=== PATIENT | female | born 1980 | race Caucasian/White ===

== ENCOUNTER 2016-10-06 18:32 | Emergency (ER) | payer MEDICAID, OTHER ==
--- OUTSIDE RECORDS SUMMARY | 2016-10-06 20:08 | XMS REPORT | Encounter Summary ---
:1980 Author Organization [employer] [place] [address] Care Team Providers Name Role Phone Unavailable Primary Care Provider Unavailable Encounter Details Date Type Department Care Team Description 09/19/2016 Abstract [facility] Rosanne Paniagua, RN Orthopedics [address] [place] [address], [address] [address] [place] [address] [phone] Social History Tobacco Use Types Packs/Day Years Used Date Current Every Day Smoker 0.5 Alcohol Use Drinks/Week oz/Week Comments No Sex Assigned at Date Recorded Not on file as of this encounter Plan of Treatment Not on fileas of this encounter Visit Diagnoses Not on filein this encounter
--- OUTSIDE RECORDS SUMMARY | 2016-10-06 20:08 | XMS REPORT | Clinical Summary ---
:1980 Author Organization [facility] [place] [address] Care Team Providers Name Role Phone Unavailable Primary Care Provider Unavailable Source Comments This disclosure is being made pursuant to the [employer] program and maynot contain all information available regarding this patient.[facility] Allergies No Known Allergies Current Medications Be aware that medications may not be up to date as of this document. Alwaysverify current medications with the patient. Prescription Sig. Disp. Refills Start Date End Date Status albuterol (PROAIR Inhale 2 puffs Active HFA;PROVENTIL into the lungs HFA;VENTOLIN HFA) every 4 (four) 108 (90 Base) to 6 (six) hours MCG/ACT inhaler as needed. budesonide-formotero Inhale 2 puffs Active l (SYMBICORT) into the lungs 2 160-4.5 MCG/ACT (two) times inhaler daily. Use in the morning and in the evening. ibuprofen Take 800 mg by Active (ADVIL,MOTRIN) 800 mouth every 6 MG tablet (six) to 8 (eight) hours as needed for Pain (Take with food or milk.). traMADol (ULTRAM) 50 Take 50 mg by Active MG tablet mouth every 8 (eight) hours as needed for Pain. fluticasone 2 sprays by 09/19/2016 Discontinued (FLONASE) 50 MCG/ACT Nasal route nasal spray daily. to each nostril prazosin (MINIPRESS) Take 1 mg by 09/19/2016 Discontinued 1 MG capsule mouth nightly. gabapentin Take 100 mg by 09/19/2016 Discontinued (NEURONTIN) 100 MG mouth 3 (three) capsule times daily. May increase to 2 capsules three times daily, then may increase to 3 capsules three times daily if needed. DULoxetine Take 30 mg by 09/19/2016 Discontinued (CYMBALTA) 30 MG mouth daily. capsule hydrOXYzine pamoate Take 25 mg by 09/19/2016 Discontinued (VISTARIL) 25 MG mouth 3 (three) capsule times daily as needed for Itching. Active Problems Problem Noted Date Digital nerve laceration, finger 09/19/2016 Bilateral carpal tunnel syndrome 09/19/2016 Encounters Date Type Specialty Care Team Description 09/20/2016 Orders Only Orthopedic Surgery Rosanne Yeh Bilateral carpal tunnel syndrome (Primary Dx); KARIME Chavira Digital nerve laceration, finger, initial encounter 09/19/2016 Office Visit Orthopedic Surgery Pravin, Digital nerve laceration , finger, initial encounter (Primary Dx); MD Dariel Bilateral carpal tunnel syndrome 09/19/2016 Abstract Orthopedic Surgery Rosanne Yeh RN from Last 3 Months Family History Medical History Relation Name Comments Cancer Other Diabetes Other Heart attack Other Migraines Other Stroke Other Relation Name Status Comments Other Social History Tobacco Use Types Packs/Day Years Used Date Current Every Day Smoker 0.5 Alcohol Use Drinks/Week oz/Week Comments No Sex Assigned at Date Recorded Not on file Last Filed Vital Signs Vital Sign Reading Time Taken Blood Pressure 113/70 09/19/2016 10:50 AM CDT Pulse 89 09/19/2016 10:50 AM CDT Temperature 36.2 C (97.1 F) 09/19/2016 10:50 AM CDT Respiratory Rate - - Oxygen Saturation 97% 09/19/2016 10:50 AM CDT Inhaled Oxygen Concentration - - Weight 55.8 kg (123 lb) 09/19/2016 10:50 AM CDT Height 142.2 cm (4' 8") 09/19/2016 10:50 AM CDT Body Mass Index 27.58 09/19/2016 10:50 AM CDT Plan of Treatment Health Maintenance Due Date Last Done Comments Pneumococcal Medium Risk 19-64 yo (1 of 1 - PPSV23) 1998 Tetanus/Pertussis (1 - Tdap) 1998 Pap Smear 2000 INFLUENZA IMMUNIZATION (#1) 2016 Results Not on filefrom Last 3 Months Insurance Payer Benefit Plan / Subscriber ID Type Phone Address Group [place] [id number] Managed [phone] [address] [address] MEDICAID MEDICAID [address] [place] [address]
--- OUTSIDE RECORDS SUMMARY | 2016-10-06 20:08 | XMS REPORT | Encounter Summary ---
:1980 Author Organization [employer] [place] [address] Care Team Providers Name Role Phone Unavailable Primary Care Provider Unavailable Reason for Referral Referral (Routine) Status Reason Specialty Diagnoses / Referred By Referred To Procedures Contact Contact Authorized Specialty Hand Surgery Diagnoses Bilateral carpal tunnel syndrome Digital nerve laceration, finger, initial encounter JESÚS Costello [facility] Dariel ORTHOPAEDIC Required MD [facility]-[address] [place] [phone] [place], Phone: [place] [phone] Phone: Encounter Details Date Type Department Care Team Description 09/20/2016 Orders Only [facility] Rosanne Yeh Bilateral carpal tunnel syndrome (Primary Dx); Krista [facility] Fan, RN Digital nerve laceration, finger, initial encounter [address] [place] [address] [place] [address] Social History Tobacco Use Types Packs/Day Years Used Date Current Every Day Smoker 0.5 Alcohol Use Drinks/Week oz/Week Comments No Sex Assigned at Date Recorded Not on file as of this encounter Plan of Treatment Name Priority Associated Diagnoses Order Schedule Amb Ref to Hand Surgery Routine Bilateral carpal tunnel syndrome Ordered: 09/20/2016 Digital nerve laceration, finger, initial encounter as of this encounter Visit Diagnoses Diagnosis Bilateral carpal tunnel syndrome - Primary Carpal tunnel syndrome Digital nerve laceration, finger, initial encounter in this encounter
--- OUTSIDE RECORDS SUMMARY | 2016-10-06 20:09 | XMS REPORT | Encounter Summary ---
:1980 Author Organization [employer] [place] [address] Care Team Providers Name Role Phone Unavailable Primary Care Provider Unavailable Reason for Visit Reason Comments Finger Pain Encounter Details Date Type Department Care Team Description 09/19/2016 Office Visit [facility] Pravin Digital nerve laceration, finger, initial encounter (Primary Dx); Krista Orthopedics MD Dariel Bilateral carpal tunnel syndrome 1603 [facility], [address] [place] [address] [address] [place] [address] [place], [place] [phone] Social History Tobacco Use Types Packs/Day Years Used Date Current Every Day Smoker 0.5 Alcohol Use Drinks/Week oz/Week Comments No Sex Assigned at Date Recorded Not on file as of this encounter Last Filed Vital Signs Vital Sign Reading [...] Mass Index 27.58 09/19/2016 10:50 AM CDT in this encounter Progress Notes Dariel Costello MD - 09/19/2016 10:42 AM CDTFormatting of this note may be different from the original. Subjective: Patient ID: Fredy Goody is a 36 y.o. female. Chief Complaint: HPI Comments: Ms. Godoy presents to the clinic today due to RIGHT ring and long finger numbness. The pain is due to a laceration that occurred on 08/29/16. She reports that she cut her fingers on tree clippers and immediately went to the ER. She reports that she had 5 sutures placed, and that they only removed 3 yesterday, so she believes she may still have 1-2 sutures intact. She reports that her ring finger feels "asleep" and that the numbness goes throughout the ring finger and fci up the long finger. Her laceration does not appear infected and is located to her RIGHT ring finger and goesinto the palm. She reports that she is unable to fully straighten her ring and long fingers. She denies having any pain in the finger unless you touch it. HAS RECENT H/O CARPAL TUNNEL AND IS SCHEDULED FOR NCS IN OCTOBER IN [place]. Social History Occupational History Not on file. Social History Main Topics Smoking status: Current Every Day Smoker -- 0.50 packs/day Smokeless tobacco: Not on file Alcohol Use: No Drug Use: No Sexual Activity: Not on file Review of Systems Constitutional: Negative. HENT: Negative. Eyes: Negative. Respiratory: Negative. Cardiovascular: Negative. Gastrointestinal: Negative. Endocrine: Negative. Genitourinary: Negative. Musculoskeletal: Numbness in RIGHT ring and long finger Skin: Negative. Allergic/Immunologic: Negative. Neurological: Negative. Hematological: Negative. Psychiatric/Behavioral: Negative. Objective: Right Hand/Wrist Exam Sensation: Abnormal Tenderness The patient is experiencing tenderness in the RING MP CREASE. Muscle Strength Wrist Extension: 5/5 Wrist Flexion: 5/5 Foot Miter Operator: Tests Phalens Sign: Positive Tinels Sign (Medial Nerve): Negative Pallavi: Negative Comments: LACERATION AT MP FLEXION CREASE RING FINGER SENSORY LOSS RING FINGER AND LONG FINGER APB WEAKNESS Assessment: 1. Digital nerve laceration, finger, initial encounter 2. Bilateral carpal tunnel syndrome DELAYED PRESENTATION; INJURY AUG 29, 2016 Plan: HAND SX REFERRAL in this encounter Plan of Treatment Not on fileas of this encounter Visit Diagnoses Diagnosis Digital nerve laceration, finger, initial encounter - Primary Bilateral carpal tunnel syndrome Carpal tunnel syndrome in this encounter
--- NOTE | 2016-10-06 20:25 | ERNOTE ---
Upper Extremity HPI - Narrative Date of Service: 10/06/16 - General Extremities Pain Location: wrist: right - moderate pain with movemen Time Seen by Provider: 10/06/16 19:57 Source: patient - Immun/Allergies/Home Medications Immunizations: IMMUNIZATION HX Immunizations Up to Date Yes History of Influenza Vaccine No Hx Pneumococcal Vaccination No Allergies/Adverse Reactions: Allergies Allergy/AdvReac Type Severity Reaction Status Date / Time No Known Allergies Allergy Unverified 10/06/16 19:09 Home Medications: HOME MEDICATIONS Budesonide/Formoterol Fumarate [Symbicort 80-4.5 Mcg Inhaler] 1 puff PO DAILY [Last Taken Unknown] Ibuprofen [Motrin] 800 mg PO QID PRN 10/06/16 [Last Taken Unknown] oxyCODONE HCL/ACETAMINOPHEN [Percocet 5-325 mg Tablet] 1 mg PO PRN PRN 10/06/16 [Last Taken Unknown] - History of Present Illness Narrative: Records from [facility] were reviewed primarily the operative report from Dr. Carrasquillo. Essentially patient had a carpal tunnel release surgery , and a repair of nerve injury from deep laceration. No surgical complications were noted. This was relayed to the patient due to the soft tissue swelling now resolved the cast was rubbing up against her incision around the area of the carpal tunnel surgery and she was not tolerating the pain and is here for evaluation. Occurred: other - just today the patient was unable to tolerate the pain and is here for evaluation. Modifying Factors - (Improves): Reports: immobilization - mobilization helps with some. Denies: pain medication - pain medications are no longer alleviating the pain Modifying Factors - (Worsens): Reports: other - looseness of the cast seems to be exacerbating the pain Associated Symptoms: Reports: tingling - mild. Denies: weakness Prior Treament: Reports: treated by physician, other - recent surgery for carpal tunnel release and nerve injury to index finger. Review of Systems - Review of Systems Constitutional: Present: no symptoms reported EYE: Present: no symptoms reported ENT: Present: no symptoms reported Respiratory: Present: no symptoms reported Cardiology: Present: no symptoms reported Gastrointestinal/Abdominal: Present: no symptoms reported Genitourinary: Present: no symptoms reported Musculoskeletal: Present: See HPI Skin: Present: no symptoms reported Neurological: Present: no symptoms reported Endocrine: Present: no symptoms reported All Other Systems: All systems neg except as marked - Patient's Past Medical History Patient History - Medical: No pertinent hx Patient History - Cardiac/Respiratory: Asthma, Bronchitis Patient History - Cancer: No Hx of Cancer Patient History - Surgical Procedures: , D & C, Tubal Ligation, T & A, Other Patient History - Other: None LMP (females 10-50): last week - Social History Living Situations: significant other Psych History: No pertinent hx, Hx of Anxiety, Hx of Depression Smoking Status: Current every day smoker Have you smoked in the past 12 months: Yes Do you dip or chew tobacco: No Alcohol Use: none Drug Use: none - Immunizations Immunizations Up to Date: Yes Hx Pneumococcal Vaccination: No History of Influenza Vaccine: No Physical Exam - Physical Exam General Appearance: Present: wd/wn, alert, moderate distress - due to pain Head Exam: Present: normal inspection, no evidence of injury Eye Exam: Normal inspection: bilateral, PERRL: bilateral, EOMI: bilateral Ears, Nose, Throat: Present: normal ENT inspection Neck: Present: normal inspection, nontender Respiratory: Present: no respiratory distress, normal breath sounds, no accessory muscle use, chest nontender, lungs clear, rales Cardiovascular/Chest: Present: no murmur, normal peripheral pulses Peripheral Pulses: N=norm/S=strong/W=weak/B=bound/A=absent: Carotid (R): Normal , Carotid (L): Normal Gastrointestinal/Abdominal: Present: other - deferred Rectal Exam: Present: deferred Extremity Exam: Present: other - right hand in cast , s/p surgical carpal tunnel surg 10/04/2016, [facility] , nerve repair and carpal tunnel repair. Skin Exam: Present: normal color, warm/dry, other - cap refill right fingers, volar over wrist site of surgery, finger lac / nerve repair is intact. Lymphatic Exam: Present: other - deferred Pelvic Exam: Present: deferred ED Progress - Results and Orders Patient's Lab Results:: I have reviewed the patient's lab results. Results and Orders: Laboratory Tests 10/06/16 10/06/16 20:30 20:30 WBC 12.5 H RBC 4.29 Hgb 12.8 Hct 37.5 MCV 87.4 MCH 29.8 MCHC 34.1 RDW 13.3 Plt Count 303 MPV 10.9 H Immature Gran % (Auto) 0.20 Immature Gran # (Auto) 0.03 Neutrophils % 68.9 Lymphocytes % 22.2 Monocytes % 4.7 Eosinophils % 3.6 H Basophils % 0.4 Nucleated RBC % 0.0 Neutrophils # 8.6 H Lymphocytes # 2.8 Monocytes # 0.6 Eosinophils # 0.5 Absolute Basophils 0.1 Sodium 142 Plasma Sodium 142 Potassium 4.0 Chloride 104 Carbon Dioxide 28.0 Anion Gap 14.0 H BUN 13 Creatinine 0.86 Est GFR (Non-Af Amer) 79 BUN/Creatinine Ratio 15.1 Random Glucose 86 Calcium 9.1 C-Reactive Prot, Quant Less than 0.2 - Vital Signs Patient's Vital Signs:: I have reviewed the patient's vital signs. Vital Signs: Vital Signs 10/06/16 19:00 Temperature 37.8 C H Pulse Rate 105 H Respiratory 16 Rate Blood Pressure 134/57 O2 Sat by Pulse 99 Oximetry - X-Ray X-Ray #1 X-Ray: wrist Interpretation: Interp. by me, Reviewed by me - no evidence of any acute abnormality soft tissue or bony otherwise. Report noted - Progress/Reassessment Chief Complaint: Upper Extremity Injury/Problem Departure Clinical Impression: Post-operative pain - Departure Disposition: Home self-care Condition: Good Instructions: Carpal Tunnel Release, Care After Additional Instructions: Notify Dr. Carrasquillo wound and hand are healing normally, xrays and labs show no abnormal signs of infection,abnormal swelling. wound shannan wrap replaced and minimal mobility of cast pain is resolved. Referrals: Marcia Potts ARNP [Primary Care Provider] - Claude Carrasquillo MD [Non Staff Physicians] - 10/10/16
[2016-10-06] MEDS ORDERED: oxyCODONE HCL/ACETAMINOPHEN 1 TAB TABLET PO ONE (20:26)
[2016-10-06 20:39] LABS: Hematocrit 37.5 % (37.0-47.0); Hemoglobin 12.8 gm/dL (12.5-16.0); Mean Cell Volume 87.4 fl (78-100); Mean Corpuscular Hemoglobin 29.8 pg (27-31); Mean Corpuscular Hgb Conc 34.1 g/dl (32-36); Mean Platelet Volume 10.9 fl (6.0-9.5); Neutrophil # 8.6 K/mm3 (1.3-6.0); Neutrophil % 68.9 % (42-75.0); Platelet Count 303 K/mm3 (150-450); Red Blood Count 4.29 M/mm3 (4.2-5.4); Red Cell Distribution Width 13.3 % (11.5-14.0); White Blood Count 12.5 K/mm3 (4.0-10.5)
[2016-10-06 20:46] LABS: BUN/Creatinine Ratio 15.1 (9.0-21.6); Blood Urea Nitrogen 13 mg/dL (3-23); Calcium * 9.1 mg/dL (7.9-10.9); Chloride 104 mmol/L (97-106); Estimated Creat Clear 51.3; Glucose * 86 mg/dL (70-110); Sodium 142 mmol/L (132-142)
[2016-10-06] MEDS ORDERED: oxyCODONE HCL/ACETAMINOPHEN 1 TAB TABLET ONE (20:46)
[2016-10-06 21:46] VITALS: BP 131/60
== END 2016-10-06 21:45 | disposition home or self-care (01) ==
LOC: ER 18:32
DX: G89.18 Other acute postprocedural pain (principal); F17.200 Nicotine dependence, unspecified, uncomplicated; J45.909 Unspecified asthma, uncomplicated

== ENCOUNTER 2016-10-18 15:40 | Emergency (ER) | payer OTHER ==
[2016-10-18] MEDS ORDERED: NORMAL SALINE 1,000 ML IV ONE (15:52)
[2016-10-18] MEDS ORDERED: KETOROLAC TROMETHAMINE 30 MG/ML VIAL IV ONE (15:52)
[2016-10-18] MEDS ORDERED: ONDANSETRON HCL/PF 2 MG/ML VIAL IV ONE (15:52)
[2016-10-18] MEDS ORDERED: KETOROLAC TROMETHAMINE 30 MG/ML VIAL ONE (15:56)
[2016-10-18] MEDS ORDERED: ONDANSETRON HCL/PF 2 MG/ML VIAL ONE (15:56)
--- NOTE | 2016-10-18 16:03 | ERNOTE ---
Headache ER HPI - Narrative Date of Service: 10/18/16 - General Presenting Symptoms: "migraine" Time Seen by Provider: 10/18/16 15:50 Source: patient - Immun/Allergies/Home Medications Immunizations: IMMUNIZATION HX Immunizations Up to Date Yes History of Influenza Vaccine No Hx Pneumococcal Vaccination No Allergies/Adverse Reactions: Allergies No Known Allergies Allergy (Verified 10/18/16 15:48) Home Medications: HOME MEDICATIONS Budesonide/Formoterol Fumarate [Symbicort 80-4.5 Mcg Inhaler] 1 puff PO DAILY [Last Taken Unknown] Ibuprofen [Motrin] 800 mg PO QID PRN 10/06/16 [Last Taken Unknown] oxyCODONE HCL/ACETAMINOPHEN [Percocet 5-325 mg Tablet] 2 mg PO PRN PRN 10/06/16 [Last Taken Unknown] - History of Present Illness Narrative: patient states that she has had a headache for the last few days. states she tried tylenol and motrin for pain. states that headache is in the back of her head. denies vision changes or dizziness. states she has had nausea today but is currently drinking a soda. patient states she is "photophobic and sensitive to sound" but was able to change the channel during my assessment and when i entered the room she was on her cell phone. Date (Duration): 10/18/16 Timing of Headache: cannot pinpoint onset Context Headache: Present: new onset. Absent: CO exposure, tick bite, insect bite, sick contact, meningitis exposure, recent head injury < 24 hrs ago, recent head injury > 24 hrs, recent travel-outside [place] Quality: Present: achy Severity Maximum: Present: mild Severity-Currently: Present: mild Headache frequency: Present: similar to previous headache Modifying Factors - (Improves): Reports: medication Modifying Factors - (Worsens): Reports: movement, exposure to light Associated Symptoms: Reports: nausea. Denies: fever/chills, vomiting, sweating , fatigue Exacerbated by:: Reports: light, noise Review of Systems - Review of Systems Constitutional: Present: no symptoms reported EYE: Present: no symptoms reported ENT: Present: no symptoms reported Respiratory: Present: no symptoms reported Cardiology: Present: no symptoms reported Gastrointestinal/Abdominal: Present: See HPI, nausea, vomiting Genitourinary: Present: no symptoms reported Musculoskeletal: Present: no symptoms reported Skin: Present: no symptoms reported Neurological: Present: See HPI, headache, dizziness/light-headedness Endocrine: Present: no symptoms reported Hematologic/Lymphatic: Present: no symptoms reported Psych: Present: no symptoms reported All Other Systems: All systems neg except as marked - Patient's Past Medical History Patient History - Medical: No pertinent hx Patient History - Cardiac/Respiratory: Asthma, Bronchitis Patient History - Cancer: No Hx of Cancer Patient History - Surgical Procedures: , D & C, Tubal Ligation, T & A, Other Patient History - Other: None - Social History Living Situations: home Psych History: No pertinent hx, Hx of Anxiety, Hx of Depression Alcohol Use: none Drug Use: none - Immunizations Immunizations Up to Date: Yes Hx Pneumococcal Vaccination: No History of Influenza Vaccine: No Physical Exam - Physical Exam General Appearance: Present: wd/wn, alert, no apparent distress Head Exam: Present: normal inspection, no evidence of injury, no tenderness w palpation Eye Exam: Normal inspection: bilateral, PERRL: bilateral, EOMI: bilateral Ears, Nose, Throat: Present: normal ENT inspection, normal pharynx. Absent: sinus pain/drainage Neck: Present: normal inspection, nontender, supple, full range of motion Respiratory: Present: no respiratory distress, normal breath sounds, no accessory muscle use, chest nontender, lungs clear Cardiovascular/Chest: Present: regular rate, rhythm, normal peripheral pulses Gastrointestinal/Abdominal: Present: normal bowel sounds, nontender, nondistended, soft Back Exam: Present: normal inspection, normal range of motion, no CVA tenderness , no vertebral tenderness Extremity Exam: Present: normal inspection, non-tender, normal range of motion, no edema Neurological Exam: Present: alert, oriented, normal mood/affect, no motor/ sensory deficits. Absent: facial droop Skin Exam: Present: normal color, warm/dry Lymphatic Exam: Present: no adenopathy ED Progress - Vital Signs Patient's Vital Signs:: I have reviewed the patient's vital signs. Vital Signs: Vital Signs 10/18/16 15:45 Temperature 36.6 C Pulse Rate 92 Respiratory 12 Rate Blood Pressure 118/75 O2 Sat by Pulse 97 Oximetry - Progress/Reassessment Chief Complaint: Headache Progress:: Improved Departure Clinical Impression: Migraine Qualifiers: Migraine type: without aura Status migrainosus presence: without status migrainosus Intractability: not intractable Qualified Code(s): G43.009 - Migraine without aura, not intractable, without status migrainosus - Departure Disposition: Home Follow Up Needed Condition: Stable Instructions: Migraine Headache, Zyfi-[id number] Additional Instructions: Continue previous home medications as directed. Follow up with her primary care provider regarding her headaches. Return to the emergency room if symptoms return or persist. Referrals: Cami Riggins FNP [Primary Care Provider] -
--- OUTSIDE RECORDS SUMMARY | 2016-10-18 16:11 | XMS REPORT | Encounter Summary ---
:1980 Author Organization [employer] [place] [address] Care Team Providers Name Role Phone Unavailable Primary Care Provider Unavailable Reason for Visit Reason Comments Finger Pain Encounter Details Date Type Department Care Team Description 09/19/2016 Office Visit [facility] Pravin Digital nerve laceration, finger, initial encounter (Primary Dx); Krista Orthoped[facility] MD Dariel Bilateral carpal tunnel syndrome 1603 [facility], [address] [place] [address] [address] [place] [address] [place], [place] [phone] Social History Tobacco Use Types Packs/Day [...] from the original. Subjective: Patient ID: Fredy Godoy is a 36 y.o. female. Chief Complaint: [...] numbness goes throughout the ring finger and long-term up the long finger. Her laceration does not appear infected and is located to her RIGHT ring finger and goesinto the palm. She reports that she is unable to fully straighten her ring and long fingers. She denies having any pain in the finger unless you touch it. HAS RECENT H/O CARPAL TUNNEL AND IS SCHEDULED FOR NCS IN OCTOBER IN [place]. Social History Occupational History Not on file. [...] Strength Wrist Extension: 5/5 Wrist Flexion: 5/5 Endoscopy Registered Nurse: Tests Phalens Sign: Positive Tinels Sign (Medial [...]
--- OUTSIDE RECORDS SUMMARY | 2016-10-18 16:11 | XMS REPORT | Clinical Summary ---
:1980 Author Organization [employer] [place] [address] Care Team Providers Name Role Phone Unavailable Primary Care Provider Unavailable Source Comments This disclosure is being made pursuant to the [employer] program and maynot contain all information available regarding this patient.[facility] Allergies No Known Allergies Current Medications Be [...] Phone Address Group [employer] [place] [id number] Managed [phone] [address] [address] MEDICAID MEDICAID [address] [place] [address]
--- OUTSIDE RECORDS SUMMARY | 2016-10-18 16:11 | XMS REPORT | Encounter Summary ---
:1980 Author Organization [employer] [place] [address] Care Team Providers Name Role Phone Unavailable Primary Care Provider Unavailable Encounter Details Date Type Department Care Team Description 09/19/2016 Abstract [facility] Rosanne Paniagua, RN Orthopedics [address] [place] [address], [address] [address] [place] [address] [phone] Social History Tobacco Use Types Packs/Day Years Used Date Current Every Day Smoker 0.5 Alcohol Use Drinks/Week oz/Week Comments No Sex Assigned at Date Recorded Not on file as of this encounter Plan of Treatment Not on fileas of this encounter Visit Diagnoses Not on filein this encounter
[2016-10-18 16:47] VITALS: BP 120/78
[2016-10-18] MEDS ORDERED: diphenhydrAMINE HCL 50 MG/ML VIAL IV ONE (16:50)
[2016-10-18] MEDS ORDERED: diphenhydrAMINE HCL 50 MG/ML VIAL ONE (16:59)
== END 2016-10-18 17:24 | disposition home or self-care (01) ==
LOC: ER 15:40
DX: G43.909 Migraine, unspecified, not intractable, without status migrainosus (principal); J45.909 Unspecified asthma, uncomplicated
CPT/HCPCS: 96374; 96375; 99284; J2405